=== PATIENT | male | born 2000 | race Caucasian/White ===

== ENCOUNTER 2022-09-09 15:26 | Emergency (ER) | payer SELFPAY ==
[2022-09-09 15:47] VITALS: BP 143/80; PULSE 67; RESP 18; TEMP 36.8; O2SAT 98; BMI 30.7
--- NOTE | 2022-09-09 15:47 | ED_ITS ---
HPI - General Adult General Chief complaint: Urogenital-Male Stated complaint: std screening/discharge Time Seen by Provider: 09/09/22 16:06 Source: patient Mode of arrival: ambulatory Limitations: no limitations History of Present Illness HPI narrative: Patient comes to the emergency room complaining of penile discharge for couple of days. Also mild dysuria. Patient states he was sexually active 1 week ago, did not use protection. Denies fever chills, no abdominal pain or flank pain. Related Data Previous Rx's Medication Instructions Recorded doxycycline hyclate 100 mg capsule 100 mg PO BID #13 caps 09/09/22 Allergies Allergy/AdvReac Type Severity Reaction Status Date / Time No Known Allergies Allergy Verified 09/09/22 15:53 Review of Systems Review of Systems: Constitutional : No Weight loss, No Fever, No Chills, No Night Sweats, No Fatigue, No Malaise ENT/Mouth : No Hearing loss, No Ear Pain, No Nasal Congestion, No Sinus Pain, No Hoarseness, No sore throat, No Rhinorrhea, No Swallowing Difficulty Eyes: No Eye Pain, No Swelling, No Redness, No Foreign Body, No Discharge, No Vision Changes Cardiovascular : No Chest Pain, No SOB, No Dyspnea on Exertion, No Orthopnea, No Edema, No Palpitations Respiratory : No Cough, No Sputum, No Wheezing, No Smoke Exposure, No Dyspnea Gastrointestinal : No Nausea, No Vomiting, No Diarrhea, No Constipation, No abdominal Pain, No Hematochezia, No Melena Genitourinary : Complaining of penile discharge, Complaining of mild Dysuria, No Urinary Frequency, No Hematuria, No Urinary Incontinence, No Urgency, No Flank Pain, No Urinary Flow Changes, No Hesitancy Musculoskeletal : No joint pain, No Myalgias, No Joint Swelling Skin : No Skin Lesions, No rash Neuro : No Weakness, No Numbness, No Paresthesias, No Loss of Consciousness, No Dizziness, No Headache Psych : No Anxiety/Panic, No Depression, No SI/HI/AH/VH, No Social Issues, Heme/Lymph: No Bruising, No Bleeding,No Lymphadenopathy Endocrine : No Polyuria, No Polydipsia, No Temperature Intolerance PMFSH Social History Social History Advance Directives: No Advance Directives Information Provided: No Physical Exam ED Vital Signs: Vital Signs - 24 hr 09/09/22 15:47 Temperature 98.3 F Pulse Rate 67 Respiratory Rate 18 Blood Pressure 143/80 H Pulse Oximetry 98 Oxygen Delivery Method Room Air BMI result Body Mass Index 30.7 Const Other: Appearance: Alert. Oriented X3. No acute distress. Eyes: Pupils equal, round and reactive to light. ENT: Pharynx normal. Neck: Normal inspection. Neck supple. No lymph nodes noted. No crepitus CVS: Normal heart rate and rhythm. Pulses normal. Normal S1 and S2 Respiratory: No respiratory distress. Breath sounds normal. No Wheezing. No rales Abdomen: Soft and nontender. No rigidity. No distention. : Patient declined Skin: Skin warm and dry. Normal skin color. Normal skin turgor. Extremities: No lower extremity edema. No Lacerations. No Rash Neuro: Oriented X 3. No motor deficit. No sensory deficit. Moving all extremities. No slurred speech. CN 2 through 12 grossly intact Psych: calm, cooperative, normal affect Course Course Course Narrative: RME 21 yo male who woke up with white water discharge in his boxers this morning without itching or spotting, and dysuria for two days after having sexual intercourse last week. Plan: STI testing and treat Reevaluation(s) Reevaluation #1: 09/11/22--0816--patient's cultures positive for both chlamydia and gonorrhea. patient was treated in the ED. Called listed number and spoke with patient's father. Instructed father to have patient call us back to discuss results. Medications Administered Discontinued Medications Generic Name Dose Route Start Last Admin Trade Name Freq PRN Reason Stop Dose Admin Ceftriaxone Sodium 500 mg/ 0 mg 09/09/22 16:28 09/09/22 16:52 Lidocaine HCl 1 ml IM 09/09/22 16:29 1 kit ONCE ONE Administration Doxycycline Monohydrate 100 mg 09/09/22 16:29 09/09/22 16:51 Doxycycline Monohydrate 100 Mg Capsule PO 09/09/22 16:30 100 mg ONCE ONE Administration Medical Decision Making Medical Decision Making [facility] Narrative: -discussed with the patient the options of waiting to be treated until gonorrhea/chlamydia test results come back versus empiric treatment. Patient opted for empiric treatment. Patient given 1 dose of IM ceftriaxone and p.o. doxycycline Lab Data Labs: Lab Results 09/09/22 09/09/22 Range/Units 16:38 16:39 Urine Color Yellow Urine Appearance Clear Urine pH 6.0 (5.0-9.0) Ur Specific Hepler 1.020 (1.005-1.025) Urine Protein Negative (Neg-Trace) mg/dL Urine Glucose (UA) Negative (Negative) mg/dL Urine Ketones Negative (Negative) mg/dL Urine Blood Negative (Negative) Urine Nitrite Negative (Negative) Ur Leukocyte Esterase Moderate (2+) H (Negative) Urine RBC 3-5 H (0-2) /HPF Urine WBC >50 H (0-5) /HPF Ur Squamous Epith Cells 3-5 (0-2) /HPF Urine Bacteria None Seen (None Seen) Hyaline Casts 0-2 (0-2) /LPF Chlam trachomat DNA PCR DETECTED A (Not Detect.) N.gonorrhoeae DNA (PCR) DETECTED A (Not Detect.) Discharge Plan Discharge Clinical Impression: Concern about STD in male without diagnosis Patient Disposition: Home, Self-Care Instructions: Sexually Transmitted Diseases in Adolescents (ED) Additional Instructions: Please follow-up with your primary care physician tomorrow. If you have any worsening or new symptoms, please return to the emergency room or call 911 Prescriptions: New doxycycline hyclate 100 mg capsule 100 mg PO BID Qty: 13 0RF Interventions: ED Discharge Assessment Last Done: 09/09/22 17:02 Discharge Date/Time: 09/09/22 17:06
--- OUTSIDE RECORDS SUMMARY | 2022-09-09 16:26 | XMS_ITS | Continuity of Care Document ---
Author Name Unknown Organization [facility] Address [address] [place] [address]- Care Team Providers Care Barrer And Tacker Name Role Phone Lupis Ayala MD Primary Care Physician [facility]counter [facility] Date(s): 01/12/20 - 01/19/20 [facility] [address] [place] [address]- [facility] Attending Physician: Henrique Stephens MD, V Referring Physician: Lupis Ayala MD Allergies, Adverse Reactions, Alerts Substance Reaction Severity Status NKA Active Immunizations Given and Recorded Vaccine Date Status Refusal Reason Meningococcal Conjugate Vaccine 1 06/07/19 Given Meningococcal Conjugate Vaccine 06/13/15 Recorded Human Papillomavirus Vaccine 11/04/16 Recorded Human Papillomavirus Vaccine 06/13/15 Recorded tetanus/diphtheria/pertussis, acel(Tdap) 06/13/15 Recorded influenza virus vaccine, inactivated 01/16/10 Wali rded influenza virus vaccine, inactivated 12/10/09 Wali rded influenza virus vaccine, inactivated 04/23/08 Wali rded influenza virus vaccine, live 02/18/09 Recorded Measles/Mumps/Rubella Virus Vaccine 11/30/07 Recor ded Measles/Mumps/Rubella Virus Vaccine 12/17/03 Recor ded Varicella Virus Vaccine 11/30/07 Recorded Varicella Virus Vaccine 12/17/03 Recorded Poliovirus Vaccine, Inactivated 11/30/07 Recorded Poliovirus Vaccine, Inactivated 09/19/03 Recorded Poliovirus Vaccine, Inactivated 07/02/03 Recorded Poliovirus Vaccine, Inactivated 02/26/03 Recorded diphtheria/tetanus/pertussis, acel(DTaP) 11/30/07 Recorded diphtheria/tetanus/pertussis, acel(DTaP) 07/25/04 Recorded diphtheria/tetanus/pertussis, acel(DTaP) 08/30/03 Recorded diphtheria/tetanus/pertussis, acel(DTaP) 07/02/03 Recorded diphtheria/tetanus/pertussis, acel(DTaP) 02/26/03 Recorded haemophilus b conjugate (PRP-OMP)vaccine 04/29/04 Recorded haemophilus b conjugate (PRP-OMP)vaccine 09/19/03 Recorded haemophilus b conjugate (PRP-OMP)vaccine 07/02/03 Recorded haemophilus b conjugate (PRP-OMP)vaccine 02/26/03 Recorded pneumococcal 7-valent vaccine 04/29/04 Recorded pneumococcal 7-valent vaccine 12/17/03 Recorded pneumococcal 7-valent vaccine 07/02/03 Recorded pneumococcal 7-valent vaccine 02/26/03 Recorded hepatitis B pediatric vaccine 12/15/03 Recorded hepatitis B pediatric vaccine 09/19/03 Recorded hepatitis B pediatric vaccine 06/07/03 Recorded 1Result Comment: 79698-850-44 Medications MiraLax oral powder for reconstitution = 17 Gm, By Mouth, Daily, dissolve in water before taking, # 527 Gm, 0 Refills, Maintenance, 03/30/19 16:36:32 EST, REC Powder, 17 Gm By Mouth Daily,Instr:dissolve in water before taking, 167.6, cm, 03/28/19 18:51:36 EST, Height, 85.8, kg, 03/30/19 10... Start Date: 03/30/19 Status: Ordered Procedures Procedure Date Related Diagnosis Body Site Status Chalazion of left upper eyelid Completed Vital Signs Most recent to oldest [Reference Range]: 1 Weight 98.6 kg (01/12/20 12:07 PM) Temperature [96.8-100.4 DegF] 97.1 DegF (01/12/20 12:07 PM) Weight Obtained Via Standing scale (01/12/20 12:07 PM) Social History Social History Type Response Smoking Status Never (less than 100 in lifetime); Tobacco user in household: No entered on: 11/24/18 Sex
--- OUTSIDE RECORDS SUMMARY | 2022-09-09 16:26 | XMS_ITS | Continuity of Care Document ---
Author Name Unknown Organization [facility] Address [address] [place] [id number]- Care Team Providers Care Optics Technical Officer Name Role Phone Branch Lupis ESQUIVEL Primary Care Physician [facility]counter [facility] Date(s): 03/16/19 - 06/10/19 [facility] [address] [place] [id number]- Attending Physician: Su Whatley MD Admitting Physician: Su Whatley MD Allergies, Adverse Reactions, Alerts Substance Reaction [...] B pediatric vaccine 06/07/03 Recorded 1Result Comment: [id number] Medications MiraLax oral powder for reconstitution = 17 Gm, By Mouth, Daily, dissolve in water before taking, # 527 Gm, 0 Refills, Maintenance, 03/30/19 16:36:32 EST, REC Powder, 17 Gm By Mouth Daily,Instr:dissolve in water before taking, 167.6, cm, 03/28/19 18:51:36 EST, Height, 85.8, kg, 03/30/19 10... Start Date: 03/30/19 Status: Ordered Social History Social History Type Response Smoking Status Never (less than 100 in lifetime); Tobacco user in household: No entered on: 11/24/18 Sex
--- OUTSIDE RECORDS SUMMARY | 2022-09-09 16:26 | XMS_ITS | Continuity of Care Document ---
Author Name Unknown Organization [facility] Address [address] [place] [address]- Care Team Providers Care Kiln Charger Name Role Phone Branch Lupis ESQUIVEL Primary Care Physician Encounter [facility] Date(s): 12/29/19 - 01/28/20 [facility] [address] [place] [phone]- Allergies, Adverse Reactions, Alerts Substance Reaction Severity [...] B pediatric vaccine 06/07/03 Recorded 1Result Comment: [id number] Medications MiraLax oral powder for reconstitution = [...]
--- OUTSIDE RECORDS SUMMARY | 2022-09-09 16:26 | XMS_ITS | Continuity of Care Document ---
Author Name Unknown Organization [facility] Address [address] [place] [address]- Care Team Providers Care Base Cloth Inspector Name Role Phone Branch Lupis ESQUIVEL Primary Care Physician [facility]counter [facility] Date(s): 05/11/19 - 05/21/19 [facility] [address] [place] [address]- Attending Physician: Meri Rodriguez Admitting Physician: AdmMeri mcnulty Referring Physician: AdmtrMeri Allergies, Adverse Reactions, Alerts Substance Reaction Severity Status NKA Active Immunizations Given and Recorded Vaccine Date Status Refusal Reason Human Papillomavirus Vaccine 11/04/16 Recorded Human Papillomavirus Vaccine 06/13/15 Recorded tetanus/diphtheria/pertussis, acel(Tdap) 06/13/15 Recorded Meningococcal Conjugate Vaccine 06/13/15 Recorded influenza virus vaccine, inactivated 01/16/10 [...] Recorded hepatitis B pediatric vaccine 06/07/03 Recorded Medications MiraLax oral powder for reconstitution = [...]
--- OUTSIDE RECORDS SUMMARY | 2022-09-09 16:26 | XMS_ITS | Continuity of Care Document ---
Author Name Unknown Organization [facility] Address [address] [place] [address]- Care Team Providers Care Athletic Turf Worker Name Role Phone Branch Lupis ESQUIVEL Primary Care Physician Encounter [facility] Date(s): 01/12/20 - 02/11/20 [facility] [address] [place] [address]- [facility] Attending Physician: Meri Rodriguez Admitting Physician: Meri Rodriguez Referring Physician: AdmtrMeri Allergies, Adverse Reactions, Alerts [...] B pediatric vaccine 06/07/03 Recorded 1Result Comment: [id number] Medications MiraLax oral powder for reconstitution = [...]
[2022-09-09] MEDS: Doxycycline Monohydrate 100 MG CAPSULE PO (16:51)
[2022-09-09] MEDS: cefTRIAXone sodium 500 MG, Lidocaine HCl 1 % MPF 1 ML IM (16:52)
[2022-09-09 17:13] LABS: Appearance Urine Clear; Color Urine Yellow; Glucose Urine UA Negative (Negative); Leukocyte Esterase Urine Moderate (2+) (Negative); Nitrite Urine Negative (Negative); UMIC TRIGGER UACC YES; Urine Blood Negative (Negative); Urine Ketones Negative (Negative); Urine Protein Negative (Neg-Trace)
[2022-09-09 17:30] LABS: Bacteria Urine None Seen (None Seen); Hyaline Casts Urine 0-2 /LPF (0-2); UACC Culture Trigger YES; WBC Urine >50 /HPF (0-5)
[2022-09-09 18:44] LABS: CT PCR DETECTED (Not Detect.); NG PCR DETECTED (Not Detect.)
== END 2022-09-09 17:06 | disposition home or self-care (01) ==
PROVIDERS: Physician Assistant; Emergency Provider Emergency Medicine
DX: R36.9 Urethral discharge, unspecified (principal); Z20.2 Contact with and (suspected) exposure to infections with a predominantly sexual mode of transmission; Z79.899 Other long term (current) drug therapy
CPT/HCPCS: 0353U; 81001; 87086; 96372; 99283; 99284; J0696